=== PATIENT | male | born 1965 | race Caucasian/White ===

== ENCOUNTER 2025-05-22 17:32 | Emergency (ER) | payer MEDICAID, SELFPAY ==
--- NOTE | 2025-05-22 17:34 | EKG_ITS ---
[facility] Test Date: 2025-05-22 Pat Name: STANFORD OROZCO Department: Room: - Gender: Male Student Records Specialist: : [id number] Requested By: Simón Suggs Order Number: [id number] Reading MD: Simón Suggs Measurements Intervals [place] Rate: 79 P: 52 FL: 175 QRS: -85 QRSD: 90 T: 64 QT: 361 QTc: 416 Interpretive Statements SINUS RHYTHM PATTERN CONSISTENT WITH PULMONARY DISEASE INFERIOR MYOCARDIAL INFARCTION , OF INDETERMINATE AGE [40+ ms Q WAVE AND/OR ST/T ABNORMALITY IN II/aVF] Compared to ECG 01/21/2022 18:16:13 Left anterior fascicular block no longer present ST (T wave) deviation no longer present Myocardial infarct finding still present /store/S0/[id number]/ecg/[id number].pdf
[2025-05-22 17:35] VITALS: PULSE 88; RESP 16; O2SAT 95; BMI 26.6
[2025-05-22 17:41] VITALS: BP 122/75; PULSE 91; RESP 17; TEMP 36.6; O2SAT 95
--- NOTE | 2025-05-22 17:49 | XR_ITS ---
Examination: AP chest single view TECHNIQUE: AP portable upright chest single view Date and time: May 22, 2025 1737 hours Comparison October 13, 2022 INDICATIONS: Severe chest pain today. FINDINGS: Early bibasilar pneumonia No significant cardiac enlargement. No pulmonary edema. Mild osteopenia. Impression : Early bibasilar pneumonia.
--- NOTE | 2025-05-22 17:51 | XR_ITS ---
Examination: CTA chest, with intravenous contrast. CTA abdomen, with intravenous contrast. CTA pelvis, with intravenous contrast. 2-D sagittal and coronal reconstructions. 3-D reconstructions. Date and time of exam: May 22, 2025 2042 hours INDICATION: Chest and abdominal pain today CTDI vol (mgy) 14.20 DLP (MGycm) 790 Technique: Multiple CTA images, 2.0 mm slice thickness, obtained chest, abdomen, pelvis, with the high-resolution 64 slice scanner. 100 cc Isovue-370 is administered intravenously. Sagittal and coronal 2-D reconstructions are obtained. 3-D reconstructions, angiographic images are obtained. 3-D postprocessing, including vascular maximum intensity projections. Low dose protocols were performed. One or more of the following dose reduction techniques were used; automated exposure control, adjustment of the mA and/or KV according to patient size, use of iterative reconstruction technique. Findings: Mediolateral dimension ascending thoracic aorta 4.1 cm Pulmonary artery segments are not enlarged No pulmonary artery emboli Moderate calcification left anterior descending coronary artery COPD with multiple areas of air space destruction Significant bibasilar pneumonia Liver is irregular in contour no focal liver lesions Absent gallbladder Common bile duct 6 mm no stones No pancreatic mass Spleen is not enlarged No renal or ureteral calculi Infrarenal abdominal aortic aneurysm transverse dimension 4.7 cm in AP dimension 4.0 cm with extensive mural thrombus Occlusion right common iliac artery with reconstitution right external iliac artery No bowel obstruction No pericecal inflammatory changes No diverticulitis Urinary bladder is intact with no significant prostatomegaly Prominent osteopenia with advanced disc narrowing L2-L3 IMPRESSION: Aneurysmal dilatation ascending thoracic aorta, no dissection Negative for pulmonary artery emboli COPD Significant bibasilar pneumonia Primary hepatocellular disease Infrarenal abdominal aortic aneurysm, transverse dimensions 4.7 x 4.0 cm with extensive mural thrombus Occlusion right common iliac artery with reconstitution right external iliac artery, consider arterial Doppler sonography lower extremities follow-up
--- NOTE | 2025-05-22 17:52 | PD.EDCHEST ---
ED Chest Pain RME/HPI General Chief Complaint: Chest Pain Stated Complaint: CHEST PAIN Time Seen by Provider: 05/22/25 17:44 Arrival date/time: 05/22/25 17:32 RME / HPI RME / HPI narrative: 60-year-old male patient with significant history of chronic smoking, history of aortic aneurysm, CAD, with stents, 2 years ago, came in for evaluation regarding left-sided chest pain. Onset of symptoms about 30 minutes prior to ER visit as sudden onset of left-sided chest pain, described as sharp pain, severity moderate. Patient took nitro at home 2 tablets and on the way to the emergency room was given another nitro and Nitropaste. Patient was also given aspirin 2 tablets. Also complaining of chronic cough probably secondary to smoking according to him. Denies any chest pain or coughing. Denies any fever denies any shortness of breath. Patient is scheduled to have aortic aneurysm surgery by Dr. Pacheco however it was postponed lately. Related Data Previous Rx's ?Medication ?Instructions ?Recorded meclizine 25 mg tablet 25 mg PO BID PRN dizziness #14 tabs 10/04/22 amoxicillin 875 mg-potassium 1 tab PO BID #14 tabs 05/22/25 clavulanate 125 mg tablet azithromycin 250 mg tablet 250 mg PO QDAY 4 days #4 tabs 05/22/25 (Zithromax) Allergies Allergy/AdvReac Type Severity Reaction Status Date / Time codeine Allergy Mild RASH Verified 06/07/22 09:30 Review of Systems Review of Systems Narrative Review of Systems: Review of system reviewed and within normal limits except mentioned in HPI ED Exam Narrative Physical exam: VITAL SIGNS: Reviewed. GENERAL APPEARANCE: Alert and interactive, follows commands, no acute distress, HEAD AND FACE: Non-traumatic. ENT: PERRL, pink conjunctivitis, eyelid no trauma, Mucous membrane moist. NECK: Supple, nontender, no nuchal rigidity. CHEST: Left chest tenderness, no crepitus, no paradoxical movement, no retractions. LUNGS: Clear, well ventilated, symmetric, no rales, no wheezing, no ronchi, no stridor, good breath sounds bilaterally. HEART: Regular rate, regular rhythm, no murmur, no gallops. ABDOMEN: Soft, positive bowel sounds, nondistended, no guarding, nontender, no rebound, no masses, RECTAL: Deferred. GENITAL: Deferred. NEUROLOGICAL: Gross motor function intact sensory function intact, Appropriate for age. MUSCULOSKELETAL: low back nontender, full range of motion. EXTREMITIES: Nontender, full range of motion. SKIN: Color pink, dry, no rash, no lacerations, no abrasions, no contusions. LYMPHATICS: Deferred. Course Quality Measures none Orders Category Date Time Status CT Screening NOW Care 05/22/25 17:52 Active EKG (ED ONLY) *Do not use* NOW Care 05/22/25 17:[address] angio chest abdomen pelvis Stat Exams 05/22/25 17:51 Completed EKG (ED Only) Stat Exams 05/22/25 17:34 Draft XR chest 1V Stat Exams 05/22/25 17:49 Completed CBC Stat Lab 05/22/25 17:48 Completed Comprehensive Metabolic Panel Stat Lab 05/22/25 17:48 Completed Drug Screen,Urine Stat Lab 05/22/25 20:55 Received Partial Thromboplastin Time Stat Lab 05/22/25 17:48 Completed Troponin I Stat Lab 05/22/25 17:48 Completed Troponin I Stat Lab 05/22/25 21:00 Completed Urinalysis, C/S if Indicated Stat Lab 05/22/25 20:55 Completed Amoxicillin/Pot Clav 875 [Augmentin 875] Med 05/22/25 21:46 Discontinued 1 tab PO X1 ONE Azithromycin Po [Zithromax PO] Med 05/22/25 21:46 Discontinued 500 mg PO X1 ONE Morphine Inj Med 05/22/25 17:50 Discontinued 4 mg IVP X1 ONE Vital Signs Vital signs: Vital Signs Temperature 98 F 05/22/25 17:41 Pulse Rate 91 05/22/25 17:41 Respiratory Rate 17 05/22/25 17:41 Blood Pressure 122/75 05/22/25 17:41 Pulse Oximetry (%) 95 05/22/25 17:41 Oxygen Delivery Method Nasal Cannula 05/22/25 17:41 Oxygen Flow Rate 6 05/22/25 17:41 Chest Pain MDM Narrative MDM Narrative:: 60-year-old male patient with significant history of chronic smoking, history of aortic aneurysm, CAD, with stents, 2 years ago, came in for evaluation regarding left-sided chest pain. Onset of symptoms about 30 minutes prior to ER visit as sudden onset of left-sided chest pain, described as sharp pain, severity moderate. Patient took nitro at home 2 tablets and on the way to the emergency room was given another nitro and Nitropaste. Patient was also given aspirin 2 tablets. Also complaining of chronic cough probably secondary to smoking according to him. Denies any chest pain or coughing. Denies any fever denies any shortness of breath. Patient is scheduled to have aortic aneurysm surgery by Dr. Pacheco however it was postponed lately. EKG sinus rhythm provide showed sinus rhythm, ventricular to 79 bpm, ST segment elevation depression noted. Cardiac workup including troponin x 2 3 hours apart, came back normal. CBC showed slight leukocytosis of 12.5 chest x-ray showed pneumonia. Urinalysis no UTI. CT scan of the abdomen and pelvis showed Aneurysmal dilatation ascending thoracic aorta, no dissection Negative for pulmonary artery emboli COPD Significant bibasilar pneumonia Primary hepatocellular disease Infrarenal abdominal aortic aneurysm, transverse dimensions 4.7 x 4.0 cm with extensive mural thrombus Occlusion right common iliac artery with reconstitution right external iliac artery, consider arterial Doppler sonography lower extremities follow-up Patient received morphine, Augmentin and Zithromax. Prior to discharge patient is symptom-free no more chest pain. Satting 95% on room air. Patient data External records reviewed:: None Clinical information provided by:: patient Social determinants that could affect healthcare access:: none Patient has the following chronic illnesses:: Chronic smoker, CAD, hypertension How is presenting disease/condition affected by chronic disease/condition?: exacerbated by Evaluation data The following diagnostics were reviewed and interpreted by me:: lab results, radiology exam(s) and EKG tracing(s) Lab and/or radiology exams considered but not ordered:: None Interpretation Summary: See results MDM Medications / Prescriptions Medications or Prescriptions considered but not ordered:: None Medication administrations:: Medication Administration History Discontinued Medications Amoxicillin/Clavulanate Potassium (Amoxicillin/Pot Clav 875 Tablet) 1 tab PO X1 ONE Stop: 05/22/25 21:47 Last Admin: 05/22/25 22:08 Dose: 1 tab Documented By: CATHY Azithromycin (Azithromycin 250 Mg Tablet) 500 mg PO X1 ONE Stop: 05/22/25 21:47 Last Admin: 05/22/25 22:08 Dose: 500 mg Documented By: CATHY Morphine Sulfate (Morphine Sulf Inj 10 Mg/Ml Vial) 4 mg IVP X1 ONE Stop: 05/22/25 17:51 Last Admin: 05/22/25 18:21 Dose: 4 mg Documented By: VL Morphine Zithromax and Augmentin Consultations Consultation(s) initiated? (list below): No Diagnosis Chest Pain Differential Diagnosis: pneumothorax and chest pain Most likely diagnosis given after review of the tests above:: Pneumonia Admission Indicated Admission indicated?: not indicated Admission Request Was there a request for admission?: No Disposition Plan Disposition Plan: Discharge Discharge Attestation Discharge Attestation: The patient and all family members were given an opportunity to ask questions and understood the discharge instructions. Discharge instructions specifically effects, indications for sooner follow up or return to the emergency department, and the expected course of current diagnosis. Patient condition: Stable Discharge Plan Plan Patient Disposition: HOME (Self Care) Discharge Disposition comment: Stable Prescriptions/Referrals Prescriptions/Med Rec: New amoxicillin-pot clavulanate 875-125 mg tablet 1 tab PO BID Qty: 14 0RF azithromycin [Zithromax] 250 mg tablet 250 mg PO QDAY 4 Days Qty: 4 0RF Rx Instructions: start on day 2 of therapy No Action meclizine 25 mg tablet 25 mg PO BID PRN (Reason: dizziness) Qty: 14 0RF Referrals: Noe Fay MD [Primary Care Provider] - In 1 week Problem List Clinical Impression: Pneumonia Patient/Caregiver Discharge Instructions Discharge Activity: activity as tolerated Education Materials: What Is Pneumonia? Additional Instructions: Thank you for the opportunity for serving you today. You are stable for discharged . You are advised to: Follow-up with your PCP in 1 to 2 days Return to ED for worsening of symptoms Increase oral fluids Take medication as prescribed Print Language: Belizean Stand Alone Forms: Sanna Award Info., Patient Portal Info Letter PA/TANYA Supervising Physician SAUMYA/TANYA Supervising Physician: MD Courtney
[2025-05-22 18:01] LABS: Basophils # (Auto) 0.1 Thou/mm3 (0.0-0.2); Basophils % (Auto) 1 % (0-2.5); Eosinophils # (Auto) 0.1 Thou/mm3 (0.0-0.5); Eosinophils % (Auto) 1 % (0-10); Hematocrit 46.6 % (41.0-53.0); Hemoglobin 15.1 g/dL (13.5-16.0); Immature Granulocytes Auto 0.03 Thou/mm3 (0.00-0.00); Lymphocytes # (Auto) 3.2 Thou/mm3 (1.0-4.8); Lymphocytes % (Auto) 26 % (10-50); Mean Corpuscular HGB Conc 32.4 g/dl (31.0-37.0); Mean Corpuscular Hemoglobin 30.1 pg (25.0-35.0); Mean Corpuscular Volume 93 fL (80-100); Monocytes # (Auto) 0.8 Thou/mm3 (0.0-0.8); Monocytes % (Auto) 6 % (0-12); Neutrophils # (Auto) 8.2 Thou/mm3 (1.8-7.7); Neutrophils % (Auto) 66 % (37-80); Nucleated Red Blood Cell # 0.00 Thou/mm3 (0.00-0.00); Nucleated Red Blood Cell % 0 /100 WBC (0); Platelet Count 264 Thou/mm3 (140-440); RDW Standard Deviation 44.2 fL (35.1-43.9); Red Blood Count 5.02 Miln/mm3 (4.50-5.90); White Blood Count 12.5 Thou/mm3 (3.8-10.6)
[2025-05-22] MEDS: MORPHINE SULF INJ 10 MG/ML VIAL 4 MG IVP (18:21)
[2025-05-22 18:30] LABS: Alanine Aminotransferase 17 U/L (10-49); Albumin, Serum 4.5 gm/dL (3.5-5.0); Albumin/Globulin Ratio 1.7 (1.2-2.2); Alkaline Phosphatase 72 U/L (46-116); Anion Gap 5 (7-16); Aspartate Amino Transferase 18 U/L (0-34); BUN/Creatinine Ratio 11 Ratio (12-20); Bilirubin,Total 0.5 mg/dL (0.3-1.2); Blood Urea Nitrogen 11 mg/dL (9-23); Calcium 9.4 mg/dL (8.3-10.6); Calcium (Corrected) 9.4 mg/dL (8.5-10.1); Carbon Dioxide 28.0 mMol/L (20.0-31.0); Chloride 106 mMol/L (98-107); Creatinine (Component) 1.0 mg/dL (0.6-1.3); Estimated Creatinine Clearance 80.5 mL/min (>60); Globulin 2.7 gm/dL (2.3-3.5); Glucose 100 mg/dL (74-106); Osmolality,Calculated 276 (275-295); Potassium 3.9 mMol/L (3.4-5.1); Sodium 139 mMol/L (136-145); Total Protein 7.2 gm/dL (5.7-8.2); Troponin I < 0.002 ng/mL (0.0-0.045); eGFR > 60 See Note
[2025-05-22 18:34] LABS: Partial Thromboplastin Time 27.2 Seconds (22.0-36.0)
[2025-05-22 20:00] VITALS: BP 111/75; PULSE 66; RESP 14; O2SAT 94
[2025-05-22 21:00] VITALS: BP 108/69; PULSE 74; RESP 18; TEMP 36.8; O2SAT 92
[2025-05-22 21:07] LABS: Collection Type, Urine Clean Catch; Squamous Epithelial Cell,Urine 0 /hpf (0-5); WBC,Urine 0 /hpf (0-5)
[2025-05-22 21:18] LABS: Amorphous Crystals,Urine Present (Absent); Bilirubin,Urine Negative (Negative); Blood,Urine Negative (Negative); Clarity,Urine Clear (Clear/Hazy); Color,Urine Lt-Yellow (Lt Yel-Yel); Culture Indicated,Urine Not Indicated; Glucose, Urine Negative (Negative); Ketones,Urine Negative (Negative); Leukocyte Esterase,Urine Negative (Negative); Nitrite,Urine Negative (Negative); PH,Urine 7.0 (5.0-7.0); Protein,Urine Negative (Neg - Trace); RBC,Urine < 1 /hpf (0-3); Specific Gravity,Urine 1.028 (1.001-1.035); Urobilinogen,Urine 2.0 mg/dL (0.0-1.0)
[2025-05-22 21:26] LABS: Troponin I < 0.002 ng/mL (0.0-0.045)
[2025-05-22 22:00] VITALS: BP 112/76; PULSE 89; RESP 18; TEMP 37; O2SAT 95
[2025-05-22] MEDS: AMOXICILLIN/POT CLAV 875 TABLET 1 TAB PO (22:08)
[2025-05-22] MEDS: AZITHROMYCIN 250 MG TABLET 500 MG PO (22:08)
[2025-05-22 22:24] LABS: Amphetamine/Methamp Scrn,U Negative (Negative); Barbiturate Screen,Urine Negative (Negative); Benzodiazepines Screen,Urine Negative (Negative); Benzoylecgonine Screen, Ur Negative (Negative); Fentanyl Screen,Urine Negative (Negative); Opiate Screen,Urine Positive (Negative); THC Screen,Urine Positive (Negative)
== END 2025-05-22 22:25 | disposition home or self-care (01) ==
PROVIDERS: Nurse Practitioner Family; Emergency Provider Emergency Medicine; PCP Family Medicine
DX: J18.9 Pneumonia, unspecified organism (principal); R94.31 Abnormal electrocardiogram [ECG] [EKG]; I10 Essential (primary) hypertension; J44.0 Chronic obstructive pulmonary disease with (acute) lower respiratory infection; K76.9 Liver disease, unspecified; I71.43 Infrarenal abdominal aortic aneurysm, without rupture; I51.3 Intracardiac thrombosis, not elsewhere classified; I74.5 Embolism and thrombosis of iliac artery; F17.210 Nicotine dependence, cigarettes, uncomplicated; I25.10 Atherosclerotic heart disease of native coronary artery without angina pectoris; Z95.5 Presence of coronary angioplasty implant and graft
CPT/HCPCS: 36415; 71045; 71275; 74174; 80053; 80307; 81001; 84484; 85025; 85379; 85730; 93005; 96374; 99283; A4649; J2270; Q9967; A9270